=== PATIENT | female | born 1965 | race Two or more races ===

== ENCOUNTER → 2022-12-13 | Outpatient (CLI) | payer OTHER, MEDICAID ==
[~2022-12-13] MED LIST: ALBUTEROL SULF 2.5 MG/0.5ML(0.5%) NEB SOLN ONE
== END | disposition home or self-care (01) ==
LOC: RT 08:42
PROVIDERS: ATTEND Internal Medicine Pulmonary Disease
DX: J45.40 Moderate persistent asthma, uncomplicated (principal); R05.9 Cough, unspecified; R06.00 Dyspnea, unspecified; Z79.899 Other long term (current) drug therapy; R06.02 Shortness of breath
CPT/HCPCS: 94060; 94727; 94729

== ENCOUNTER → 2024-09-27 | Day surgery (SDC) | payer OTHER, MEDICAID ==
[2024-09-25 15:23] LABS: Urine Bacteria None Seen /hpf (None Seen)
[2024-09-25 15:33] LABS: Basophils # (auto) 0.1 10 ^3/uL (0-0.2); Basophils % (auto) 0.6 % (0.0-2.0); Eosinophils # (auto) 0.1 10 ^3/uL (0-0.8); Eosinophils % (auto) 1.1 % (0.0-7.0); Hematocrit 34.5 % (36.0-46.0); Hemoglobin 11.5 g/dL (12.2-16.2); Lymphocytes % (auto) 24.6 % (10.0-50.0); Mean Corpuscular Hemoglobin 27.7 pg (28.0-32.0); Mean Corpuscular Hgb Conc. 33.4 g/dL (32.0-36.0); Monocytes # (auto) 0.6 10 ^3/uL (0-1.3); Monocytes % (auto) 7.5 % (0.0-12.0); Neutrophils # (auto) 5.3 10 ^3/uL (1.6-8.6); Neutrophils % (auto) 66.2 % (37.0-80.0); Platelet Count (auto) 246 10^3/uL (140-450); Red Blood Cells 4.15 10^6/uL (4.0-5.20); White Blood Cell 8.1 10^3/uL (4.4-10.8)
[2024-09-25 15:48] LABS: INR 0.99 (0.9-1.15); Partial Thromboplastin Time 28.6 SEC (24.5-34.5); Prothrombin Time 10.5 sec (9.3-11.8)
[2024-09-25 15:50] LABS: Alanine Aminotransferase 17 U/L (7-40); Albumin 4.5 g/dL (3.2-4.8); Alkaline Phosphatase 84 U/L (46-116); Anion Gap 7 (5-15); Aspartate Aminotransferase 13 U/L (13-40); BUN/Creatinine Ratio 24.7 (10.0-20.0); Bilirubin, Total 0.5 mg/dL (0.2-1.0); Blood Urea Nitrogen 22 mg/dL (9-23); Calcium 10.2 mg/dL (8.7-10.4); Carbon Dioxide 28 mmol/L (20-31); Chloride 105 mmol/L (98-107); Glucose 98 mg/dL (74-106); Potassium 3.7 mmol/L (3.5-5.1); Sodium 140 mmol/L (136-145); Total Protein 7.2 g/dL (5.7-8.2)
[2024-09-25 15:59] LABS: Urine Blood Negative /uL (Negative); Urine Clarity Clear (Clear); Urine Color Yellow (Yellow); Urine Protein, UAD Negative (Negative); Urine Specific Gravity 1.023 (1.001-1.035); Urine Squamous Epithelial Cell FEW /hpf (<5); Urine Urobilinogen Normal (Negative); Urine WBC 5 /HPF (0-5)
[~2024-09-27] VITALS: Ht 160 cm; Wt 99.8 kg
[~2024-09-27] MED LIST changes: +ALBU108A5 IN; +ALBU2TAB11 PO; -ALBUTEROL SULF 2.5 MG/0.5ML(0.5%) NEB SOLN ONE; +AZEL0.1S; +CALC1TAB PO; +CHOL0.05 PO; +CYCL0.05 OP; +DICL1.3P TD; +DIPH25CA66 PO; +DexAMETHasone SOD PHOS 10MG/1ML VIAL INJ ONE; +FLUT1AER17 IN; +GINK120T3 PO; +HYDR200T36 PO; +IBUP-1454 PO; +KETAMINE 50mg/ML 1ml syringe ONE; +MAGN1TAB29 PO; +MENA1CAP PO; +MEPERIDINE HCL (50 MG/ML) 1 ML VIAL ONE; +MIDAZOLAM HCL 2MG/2ML 2ml VIAL (1mg/ml) ONE; +OMEP20TA PO; +ONDANSETRON HCL 4 MG/2 ML VIAL ONE; +OXYB5TAB14 PO; +PROPOFOL 10 MG/ML 20 ML IV ONE; +SODIUM CHLORIDE LOCK 10 ML ONE; +SUCR1TAB PO; +VALS320T PO; +[UNRECOGNIZED DRUG - CODE] IJ; +[UNRECOGNIZED DRUG - CODE] PO; +fentaNYL CITRATE 100 MCG/2 ML VL ONE
[2024-09-27 10:10] VITALS: RESP 12; TEMP 97.4; O2SAT 100
--- NOTE | 2024-09-27 10:15 | DVHOP2 ---
Operative Report DATE OF OPERATION: 09/27/24 PROCEDURE: Upper Endoscopy with biopsy. PREOPERATIVE INDICATION: The patient is a 59 -year-old female undergoing endoscopy for GERD and dyspepsia POSTOPERATIVE DIAGNOSES: 1. 2-3 cm sliding-type hiatal hernia with no significant erosive esophagitis at this time 2. Mild antral gastritis with some hyperemia and some flecks of old blood 3. Otherwise completely normal endoscopic examination of the 2nd and 3rd part of the duodenum PROCEDURE PERFORMED BY: Madalyn Guillermo GI NURSE: Aleshia SCOPE: Olympus videoendoscope. ASA CLASS: 2. PREOPERATIVE MEDICATIONS: Mac sedationDr. Simons PROCEDURE IN DETAIL: After obtaining an informed consent, the patient was placed on left lateral decubitus position. The patient was then sedated with the above medications. A bite block was placed between her teeth. The endoscope was then passed through the oropharynx, into the esophagus, and through the stomach and pylorus up to the second and third part of the duodenum. The endoscope was then withdrawn. The 2nd and 3rd part of the duodenum and the duodenal bulb were normal. Duodenal biopsies were obtained The pre-pyloric area and antrum showed mild gastritis with a few flecks of old blood. Gastric biopsies were obtained. On retroflexion the fundus cardia and angularis were normal. A hiatal hernia was noted. The endoscope was then withdrawn into the distal esophagus. Patient had a 2-3 cm sliding-type hiatal hernia but no significant erosive esophagitis at this time. The remaining distal and proximal esophagus were unremarkable The patient tolerated the procedure well without difficulty. COMPLICATIONS : None SPECIMENS: Duodenal biopsies Gastric biopsies DISPOSITION: Stable D/C to home PLAN: 1. Await for biopsy result 2. Will place pt on Protonix 40 mg p.o. daily 3. Lifestyle and dietary modifications for GERD 4. DC aspirin NSAIDs smoking alcohol 5. Resume GI soft diet advance as tolerated 6. Outpatient follow up with me in 4-6 weeks to review results and discuss further management MADALYN GUILLERMO MD Sep 27, 2024 10:15
--- NOTE | 2024-09-27 10:17 | DVHOP2 ---
Operative Report DATE OF OPERATION: 09/27/24 PROCEDURE: Colonoscopy with snare polypectomy. PREOPERATIVE INDICATION: The patient is a 59 -year-old female undergoing colonoscopy for colon cancer screening POSTOPERATIVE DIAGNOSES: 1. Patient had a 1.5 cm benign-appearing ascending colon polyp that was seen and removed by hot snare polypectomy and the specimens were retrieved 2. Patient had [id number] sigmoid diverticular disease 3. 1+ internal hemorrhoids with minimal associated proctitis otherwise normal examination up to the cecum and terminal ileum PROCEDURE PERFORMED BY: Madalyn Guillermo M.D. SCOPE: Olympus videocolonoscope. ASA CLASS: 2. PREOPERATIVE MEDICATIONS: Dr. Elias Combs PROCEDURE IN DETAIL: After obtaining an informed consent, the patient was placed on left lateral decubitus position. She was then sedated with the above medications. A rectal examination was performed that was normal. The colonoscope was then passed through the anus into the rectosigmoid and through the descending, transverse, and ascending colon up to the cecum with visualization of the appendiceal orifice, base of the cecum and the ileocecal valve. The colonoscope was then withdrawn. The distal 5-10 cm of the terminal ileum were normal In the proximal ascending colon there was a 1.5 cm benign-appearing polyp. This was removed by hot snare polypectomy and the specimens were retrieved No other polyps or masses were seen. There was no colitis. Patient had mild sigmoid diverticular disease with sigmoid muscular hypertrophy. On retroflexion and straight on view she had trace to 1+ internal hemorrhoids with minimal associated proctitis The patient tolerated the procedure well without difficulty. WITHDRAWAL TIME: 7 minutes QUALITY OF THE PREP: [place] Bowel Prep score: 9. COMPLICATIONS : None SPECIMENS: Ascending colon polyp DISPOSITION: Stable D/C to home PLAN: 1. Repeat colonoscopy base on biopsy result likely in 3-5 years 2. Resume GI soft diet advance as tolerated 3. Increase fluid and fiber intake 4. Local anorectal hemorrhoidal care 5. Outpatient follow up with me in 4-6 weeks to review results and discuss further management MADALYN GUILLERMO MD Sep 27, 2024 10:17
[2024-09-27 10:36] VITALS: BP 133/81; PULSE 75; RESP 14; O2SAT 99
== END | disposition home or self-care (01) ==
LOC: GI 08:07
PROVIDERS: ATTEND Internal Medicine Gastroenterology
DX: R19.4 Change in bowel habit (principal); K21.9 Gastro-esophageal reflux disease without esophagitis; D12.2 Benign neoplasm of ascending colon; K57.30 Diverticulosis of large intestine without perforation or abscess without bleeding; K29.50 Unspecified chronic gastritis without bleeding; K44.9 Diaphragmatic hernia without obstruction or gangrene; K64.0 First degree hemorrhoids; K62.89 Other specified diseases of anus and rectum; F17.200 Nicotine dependence, unspecified, uncomplicated; K21.00 Gastro-esophageal reflux disease with esophagitis, without bleeding; R10.13 Epigastric pain; F41.9 Anxiety disorder, unspecified; J45.909 Unspecified asthma, uncomplicated; I10 Essential (primary) hypertension; F90.9 Attention-deficit hyperactivity disorder, unspecified type; E66.9 Obesity, unspecified; Z68.35 Body mass index [BMI] 35.0-35.9, adult; Z79.899 Other long term (current) drug therapy; Z91.040 Latex allergy status; Z91.048 Other nonmedicinal substance allergy status; Z88.8 Allergy status to other drugs, medicaments and biological substances
CPT/HCPCS: 36415; 43239; 45385; 80053; 81001; 85025; 85610; 85730; 88305; 88312; 88342; J1100; J2175; J2250; J2405; J2704; J3010; J7030

== ENCOUNTER → 2024-12-11 | Outpatient (CLI) | payer OTHER, MEDICAID ==
[~2024-12-11] MED LIST changes: +ALBUTEROL SULF 2.5 MG/0.5ML(0.5%) NEB SOLN ONE; -DexAMETHasone SOD PHOS 10MG/1ML VIAL INJ ONE; -KETAMINE 50mg/ML 1ml syringe ONE; -MEPERIDINE HCL (50 MG/ML) 1 ML VIAL ONE; -MIDAZOLAM HCL 2MG/2ML 2ml VIAL (1mg/ml) ONE; -ONDANSETRON HCL 4 MG/2 ML VIAL ONE; -PROPOFOL 10 MG/ML 20 ML IV ONE; -SODIUM CHLORIDE LOCK 10 ML ONE; -fentaNYL CITRATE 100 MCG/2 ML VL ONE
== END | disposition home or self-care (01) ==
LOC: RT 08:57
PROVIDERS: ATTEND Internal Medicine Pulmonary Disease
DX: J44.89 Other specified chronic obstructive pulmonary disease (principal); R06.00 Dyspnea, unspecified
CPT/HCPCS: 94060; 94727; 94729